=== PATIENT | male | born 1990 | race Two or more races ===

== ENCOUNTER 2017-11-07 20:37 | Emergency (ER) | payer BC ==
[2017-11-07] MEDS: ONDANSETRON (ODT) 4 MG TAB ODT (23:21)
[2017-11-07] MEDS: KETOROLAC 60 MG INJ IM (23:22)
[2017-11-07 23:46] LABS: URINE BLOOD (Dip) POC 2+ (NEGATIVE); URINE GLUCOSE (Dip) POC Negative (NEGATIVE); URINE KETONES (Dip) POC Negative (NEGATIVE); URINE LEUKOCYTE EST (Dip) POC Negative (NEGATIVE); URINE NITRITE (Dip) POC Negative (NEGATIVE); URINE TOTAL PROTEIN POC Negative (NEGATIVE)
[2017-11-07 23:46] LABS: URINE PH (Dip) POC 5.5 (5.0-8.5)
== END 2017-11-08 00:05 | disposition home or self-care (01) ==
LOC: FTE 11-08 00:05
DX: R10.9 Unspecified abdominal pain (principal)
CPT/HCPCS: 81003; 96372; 99284-25